=== PATIENT | male | born 1980 | race Caucasian/White ===

== ENCOUNTER 2022-07-16 18:58 | Emergency (ER) | payer OTHER, SELFPAY ==
--- NOTE | 2022-07-16 19:46 | PC.NURSE ---
Patient did not answer page for triage
--- NOTE | 2022-07-16 20:15 | PC.NURSE ---
pt. called for triage, no answer.
== END 2022-07-16 21:16 | disposition left against medical advice (07) ==
PROVIDERS: PCP Family Medicine
DX: Z53.21 Procedure and treatment not carried out due to patient leaving prior to being seen by health care provider (principal)
CPT/HCPCS: 99199